=== PATIENT | male | born 1955 ===

== ENCOUNTER → 2016-09-12 | Outpatient (CLI) | payer MEDICARE, OTHER ==
[~2016-09-12] VITALS: Ht 167.6 cm; Wt 83.0 kg
[~2016-09-12] MED LIST: ASPI-1061 PO; ATOR20TA86 PO; BUME1TAB30 PO; CARV6 PO; CHOL200016 PO; GABA-529 PO; LISI-661 PO; METF500T4 PO; SACU1TAB PO; SPIR25 PO; TICA60TA PO
[2016-09-12 11:44] VITALS: BP 130/77
== END | disposition home or self-care (01) ==
LOC: SRCNTR 11:04
PROVIDERS: ATTEND Internal Medicine Clinical Cardiac Electrophysiology
DX: Z45.02 Encounter for adjustment and management of automatic implantable cardiac defibrillator (principal); I11.0 Hypertensive heart disease with heart failure; I50.9 Heart failure, unspecified
CPT/HCPCS: G0463

== ENCOUNTER → 2016-10-03 | Outpatient (CLI) | payer MEDICARE, OTHER ==
[~2016-10-03] VITALS: Ht 167.6 cm; Wt 84.5 kg
[~2016-10-03] MED LIST changes: -LISI-661 PO; -TICA60TA PO
[2016-10-03 09:41] VITALS: BP 132/78
== END | disposition home or self-care (01) ==
LOC: SRCNTR 09:23
PROVIDERS: ATTEND Internal Medicine Clinical Cardiac Electrophysiology
DX: Z45.02 Encounter for adjustment and management of automatic implantable cardiac defibrillator (principal); I50.9 Heart failure, unspecified
CPT/HCPCS: G0463

== ENCOUNTER → 2016-12-19 | Outpatient (CLI) | payer MEDICARE, OTHER ==
[~2016-12-19] VITALS: Ht 167.6 cm; Wt 85.0 kg
[~2016-12-19] MED LIST changes: -ASPI-1061 PO; +ASPI81TA33 PO; +BUME1TAB17 PO; -BUME1TAB30 PO
[2016-12-19 10:04] VITALS: BP 146/79
== END | disposition home or self-care (01) ==
LOC: SRCNTR 09:32
PROVIDERS: ATTEND Internal Medicine Clinical Cardiac Electrophysiology
DX: Z45.02 Encounter for adjustment and management of automatic implantable cardiac defibrillator (principal); I11.0 Hypertensive heart disease with heart failure; I50.9 Heart failure, unspecified; Z79.82 Long term (current) use of aspirin
CPT/HCPCS: G0463

== ENCOUNTER → 2017-12-18 | Outpatient (CLI) | payer MEDICARE, OTHER ==
[~2017-12-18] MED LIST changes: -ASPI81TA33 PO; +ASPI81TA87 PO; -CHOL200016 PO; +METF-960 PO; -METF500T4 PO
[2017-12-18 09:45] VITALS: BP 115/63
== END | disposition home or self-care (01) ==
LOC: SRCNTR 09:23
PROVIDERS: ATTEND Internal Medicine Clinical Cardiac Electrophysiology
DX: Z45.02 Encounter for adjustment and management of automatic implantable cardiac defibrillator (principal); I11.0 Hypertensive heart disease with heart failure; I50.9 Heart failure, unspecified
CPT/HCPCS: G0463